=== PATIENT | male | born 1990 | race Caucasian/White ===

== ENCOUNTER 2017-07-23 07:36 | Emergency (ER) | payer OTHER ==
[2017-07-23] MEDS ORDERED: GLUCAGON 1 MG/ML VIAL IVP STA ×2 (07:59→08:21)
--- NOTE | 2017-07-23 08:03 | ED ---
ENT HPI - General Chief complaint: ENT Stated complaint: FB in throat Time Seen by Provider: 07/23/17 07:50 Source: patient, RN notes reviewed Mode of arrival: ambulatory Limitations: no limitations - History of Present Illness Initial comments: Is a 27-year-old male who states he has a history of poor dentition due to chewing tobacco since he was a young person who presents with complaints of having some food stuck in his throat since last night. Disease some steak and apparently got caught. He states he cannot pass his saliva he is not able to drink anything. He also was not able take any pain medication for his dental caries and gum pain. He denies any cough fevers chills sweats. He states he has had stuff get caught in his throat before but is able passive this is a first-time he couldn't pass it. He has never had an EGD. MD complaint: tooth pain, difficulty swallowing - Related Data Home Medications Medication Instructions Recorded Confirmed [id number] 1 - 2 tab PO Q4HR PRN 07/23/17 07/23/17 [Excedrin] Ibuprofen [Motrin] 200 - 400 mg PO Q6HR PRN 07/23/17 07/23/17 Previous Rx's Medication Instructions Recorded Pantoprazole Sodium [Protonix] 20 mg PO DAILY #14 tablet. 07/23/17 Allergies Allergy/AdvReac Type Severity Reaction Status Date / Time No Known Allergies Allergy Verified 07/23/17 07:54 Review of Systems ROS Statement: Those systems with pertinent positive or pertinent negative responses have been documented in the HPI. ROS Other: All systems not noted in ROS Statement are negative. Past Medical History Past Medical History: Pneumonia History of Any Multi-Drug Resistant Organisms: None Reported Past Surgical History: Cholecystectomy Past Psychological History: Depression Smoking Status: Light tobacco smoker Past Alcohol Use History: Occasional Past Drug Use History: None Reported General Exam - General Exam Comments Initial Comments: This is a well-developed well-nourished awake alert oriented times 3 male Limitations: no limitations General appearance: alert, anxious Head exam: Present: atraumatic, normocephalic, normal inspection Eye exam: Present: normal appearance, PERRL, EOMI. Absent: scleral icterus, conjunctival injection, periorbital swelling ENT exam: Present: other (Poor dentition with dental caries upper gum erythema no drainage or discharge seen. The presentation is consistent with gingivitis and dental caries) Neck exam: Present: normal inspection. Absent: tenderness, meningismus, lymphadenopathy Respiratory exam: Present: normal lung sounds bilaterally. Absent: respiratory distress, wheezes, rales, rhonchi, stridor Cardiovascular Exam: Present: regular rate, normal rhythm, normal heart sounds. Absent: systolic murmur, diastolic murmur, rubs, gallop, clicks GI/Abdominal exam: Present: soft, normal bowel sounds. Absent: distended, tenderness, guarding, rebound, rigid Back exam: Present: full ROM Neurological exam: Present: alert, oriented X3, CN II-XII intact Psychiatric exam: Present: normal affect, anxious Skin exam: Present: warm, dry, intact, normal color. Absent: rash Course Vital Signs 07/23/17 07/23/17 07/23/17 07:38 09:47 11:10 Temperature 98.0 F 99.4 F 99.1 F Pulse Rate 100 89 91 Respiratory 20 18 18 Rate Blood Pressure 139/105 158/86 151/90 O2 Sat by Pulse 99 99 98 Oximetry Medical Decision Making - Medical Decision Making The patient was evaluated by GI and did have a scope done. A meat bolus was removed. Patient will be discharged and follow-up with Dr. Garcia in the office. Disposition Clinical Impression: Esophageal obstruction Disposition: HOME SELF-CARE Condition: Good Instructions: Esophageal Foreign Body (ED) Prescriptions: Pantoprazole Sodium [Protonix] 20 mg PO DAILY #14 tablet. Referrals: None,Stated [Primary Care Provider] - 1-2 days
[2017-07-23] MEDS ORDERED: SODIUM CHLORIDE 0.9% 1,000 ML IV ONE (11:55)
[2017-07-23] MEDS ORDERED: LIDOCAINE 1% INJ 10MG/ML (20 ML MDV) ONE (11:56)
[2017-07-23] MEDS ORDERED: MIDAZOLAM 2 MG/2 ML VIAL ONE (11:56)
[2017-07-23] MEDS ORDERED: PROPOFOL 10 MG/ML 20 ML VIAL IV ONE (11:56)
--- NOTE | 2017-07-23 12:44 | P.PCN ---
Date of Procedure: 07/23/17 Procedure(s) Performed: Procedure: Esophagogastroduodenoscopy and removal of esophageal foreign body. Preoperative diagnosis: Obstructive dysphagia. Postoperative diagnosis: Impacted piece of meat in the distal esophagus, initially captured with the snare and broken into smaller pieces, then advanced into the stomach with gentle pressure with the endoscope. Preparation and sedation: Was provided by anesthesia. Brief clinical history: The patient is a 27-year-old male who presented to the emergency room with obstructive dysphagia that started the night before after he was eating beef. The patient reported similar episodes in the past that would resolve spontaneously. He was not able to swallow any solids or liquids including his saliva. Procedure: With the patient on his left lateral decubitus position and after informed consent and adequate sedation, I passed the Olympus-GIF 160 video upper endoscope through the cricopharyngeus down the esophagus. There was secretions and food debris in the esophagus which I suctioned and the impacted piece of meat was seen impacted in the distal esophagus. I was able to capture it with the snare and break it into smaller pieces, 1 larger piece I was able to retrieve with the snare by withdrawing the endoscope. I was then able to advance the pieces of meat remaining by gentle pressure with the endoscope. The esophagus appeared somewhat corrugated, but I did not obtain any biopsies at this time because of the finding all excessive secretions and food debris secondary to the impacted piece of meat and the friability that was noted after advancing the piece of meat into the stomach. The stomach and duodenum were inspected and there was no obvious abnormality noted. The patient tolerated the procedure well. Plan: I summarized the findings to the patient and his mother. He will be on clear liquids today then he can advance his diet tomorrow as tolerated. I like to see him in follow-up in the office in few weeks and I might consider repeat endoscopy for further evaluation of his esophagus, obtain biopsies to rule out eosinophilic esophagitis and possibly consider dilation based on his symptoms and the findings at that time.
[2017-07-23] MEDS ORDERED: KETOROLAC 30 MG/ML 1 ML VIAL IVP STA (13:07)
--- NOTE | 2017-07-23 13:22 | ED ---
Medical Decision Making - Medical Decision Making The patient will be discharged on antibiotics for the gingivitis/dental caries Disposition Clinical Impression: Esophageal obstruction, Gingivitis, Dental caries Disposition: HOME SELF-CARE Condition: Good Instructions: Esophageal Foreign Body (ED), Gingivitis (ED), Toothache (ED) Prescriptions: Cephalexin [Keflex] 500 mg PO Q6HR #40 cap Pantoprazole Sodium [Protonix] 20 mg PO DAILY #14 tablet.dr Referrals: None,Stated [Primary Care Provider] - 1-2 days
[2017-07-23 13:33] VITALS: BP 149/75; PULSE 80; RESP 20; TEMP 98
== END 2017-07-23 13:33 | disposition home or self-care (01) ==
LOC: EC 07:36
DX: K22.2 Esophageal obstruction (principal); K05.10 Chronic gingivitis, plaque induced; K02.9 Dental caries, unspecified; F17.200 Nicotine dependence, unspecified, uncomplicated
CPT/HCPCS: 43247; 99284; 96374; 96375; 96361; J1610; J1885

== ENCOUNTER 2018-10-30 00:22 | Emergency (ER) | payer OTHER ==
[2018-10-30 00:31] VITALS: RESP 16; TEMP 98.6
[2018-10-30] MEDS ORDERED: PENICILLIN VK 500MG STARTER 4 TAB BTL PO STA (00:52)
[2018-10-30] MEDS ORDERED: SODIUM CHLORIDE 0.9% 1,000 ML IV STA (00:52)
[2018-10-30] MEDS ORDERED: MECLIZINE 12.5 MG TAB PO STA (00:52)
--- NOTE | 2018-10-30 01:10 | ED ---
Dizziness HPI - General Source: patient Mode of arrival: ambulatory Limitations: no limitations <Denise Joshi - Last Filed: 10/30/18 03:12> <Abril Quintero - Last Filed: 10/30/18 21:51> - General Chief Complaint: Dizziness Stated Complaint: light-headed Time Seen by Provider: 10/30/18 00:40 - History of Present Illness Initial Comments: 28-year-old male patient presents to the emergency department today for evaluation of lightheadedness. Patient states that he noticed it when he woke this morning around 3:00. Patient states that having some mild swelling due to some bad teeth. Patient states this woke him around 4 AM and he began having lightheadedness at that time. Patient states that he has dizziness both with movement and at rest. He denies any headache, blurred vision, double vision. D enies any numbness or tingling to the extremities. Denies any extremity weakness. Patient denies history of similar symptoms. Denies any upper respiratory congestion or ear pain. Denies fever or chills. States he does have right lower dental pain with intermittent swelling to the face. Patient denies any recent rash, shortness breath, chest pain, abdominal pain, nausea, vomiting, diarrhea, constipation, back pain, hematuria, dysuria, urinary urgency, urinary frequency, or any other complaints. (Denise Joshi) - Related Data Home Medications Medication Instructions Recorded Confirmed [id number] 1 - 2 tab PO Q4HR PRN 07/23/17 07/23/17 [Excedrin] Ibuprofen [Motrin] 200 - 400 mg PO Q6HR PRN 07/23/17 07/23/17 Previous Rx's Medication Instructions Recorded Cephalexin [Keflex] 500 mg PO Q6HR #40 cap 07/23/17 Pantoprazole Sodium [Protonix] 20 mg PO DAILY #14 tablet. 07/23/17 Meclizine [Antivert] 25 mg PO BID #14 tab 10/30/18 Penicillin V Potassium [Pen Vee K] 500 mg PO Q6H #40 tablet 10/30/18 Allergies Allergy/AdvReac Type Severity Reaction Status Date / Time No Known Allergies Allergy Verified 10/30/18 00:31 Review of Systems ROS Other: All systems not noted in ROS Statement are negative. <Denise Joshi M - Last Filed: 10/30/18 03:12> ROS Other: All systems not noted in ROS Statement are negative. <Abril Quintero Parminder - Last Filed: 10/30/18 21:51> ROS Statement: Those systems with pertinent positive or pertinent negative responses have been documented in the HPI. Past Medical History Past Medical History: Pneumonia History of Any Multi-Drug Resistant Organisms: None Reported Past Surgical History: Cholecystectomy Past Psychological History: Depression Smoking Status: Light tobacco smoker Past Alcohol Use History: Occasional Past Drug Use History: None Reported <Denise Joshi M - Last Filed: 10/30/18 03:12> General Exam Limitations: no limitations General appearance: alert, in no apparent distress, other (Physical well- developed, well-nourished adult male patient in no acute distress. Vital signs upon presentation are temperature 98.6F, pulse 86, respirations 16, blood pressure 141/81, pulse ox 98% on room air.) Eye exam: Present: normal appearance, PERRL, EOMI, nystagmus (Bilateral horizontal gaze nystagmus). Absent: scleral icterus, conjunctival injection, periorbital swelling ENT exam: Present: normal exam, normal oropharynx, mucous membranes moist, TM's normal bilaterally Respiratory exam: Present: normal lung sounds bilaterally. Absent: respiratory distress, wheezes, rales, rhonchi, stridor Cardiovascular Exam: Present: regular rate, normal rhythm, normal heart sounds. Absent: systolic murmur, diastolic murmur, rubs, gallop, clicks GI/Abdominal exam: Present: soft, normal bowel sounds. Absent: distended, tenderness, guarding, rebound, rigid Neurological exam: Present: alert, oriented X3, CN II-XII intact, other (Strength in all 4 extremities is 5/5.) Psychiatric exam: Present: normal affect, normal mood Skin exam: Present: warm, dry, intact, normal color. Absent: rash <Denise Joshi M - Last Filed: 10/30/18 03:12> Course Vital Signs 10/30/18 10/30/18 00:28 02:30 Temperature 98.6 F Pulse Rate 86 88 Respiratory 16 16 Rate Blood Pressure 141/81 138/98 O2 Sat by Pulse 98 Oximetry EKG Findings - EKG Comments: EKG Findings:: EKG obtained at 08 18 shows normal sinus rhythm with a ventricular rate of 78, MA interval 166, QR alevism 102, QT 372, QTc 424. No evidence of ST elevation or depression. <Denise Joshi - Last Filed: 10/30/18 03:12> Medical Decision Making - Lab Data Result diagrams: 10/30/18 00:01 10/30/18 00:01 <Denise Joshi - Last Filed: 10/30/18 03:12> - Lab Data Result diagrams: 10/30/18 00:01 10/30/18 00:01 <Abril Quintero - Last Filed: 10/30/18 21:51> - Medical Decision Making 28-year-old male patient presents to the emergency room today for evaluation of lightheadedness. Physical examination is unremarkable. He is neurologically intact with no focal deficits. Physical exam is bilateral horizontal gaze nystagmus. EKG was unremarkable and showed normal sinus rhythm. Patient was given IV fluids and Antivert here in the emergency department. Upon reevaluation patient states symptoms have completely resolved. Patient was also reporting right lower dental pain. He did reveal gingival erythema and hyperplasia on exam her there is no evidence of drainable abscess. He will be started on Pen-Vee K and instructed to follow-up with dentistry as soon as possible. He is instructed to follow-up with his primary care physician for recheck in 1-2 days. Return parameters discussed in detail. He verbalizes understanding and agrees with this plan. (Denise Joshi) I was available for consultation in the emergency department. The history and physical exam were done by the midlevel provider. I was consulted for this patient's care. I reviewed the case with the midlevel provider and based on their presentation of the patient, I agree with the assessment, medical decision making and plan of care as documented. (Abril Quintero) - Lab Data Lab Results 10/30/18 10/30/18 10/30/18 Range/Units 00:01 00:01 00:52 WBC 9.3 (3.8-10.6) k/uL RBC 4.93 (4.30-5.90) m/uL Hgb 14.5 (13.0-17.5) gm/dL Hct 43.5 (39.0-53.0) % MCV 88.4 (80.0-100.0) fL MCH 29.5 (25.0-35.0) pg MCHC 33.4 (31.0-37.0) g/dL RDW 13.0 (11.5-15.5) % Plt Count 353 (150-450) k/uL Neutrophils % 53 % Lymphocytes % 33 % Monocytes % 5 % Eosinophils % 6 % Basophils % 1 % Neutrophils # 5.0 (1.3-7.7) k/uL Lymphocytes # 3.0 (1.0-4.8) k/uL Monocytes # 0.5 (0-1.0) k/uL Eosinophils # 0.5 (0-0.7) k/uL Basophils # 0.1 (0-0.2) k/uL Sodium 143 (137-145) mmol/L Potassium 4.1 (3.5-5.1) mmol/L Chloride 105 (98-107) mmol/L Carbon Dioxide 29 (22-30) mmol/L Anion Gap 9 mmol/L BUN 7 L (9-20) mg/dL Creatinine 0.83 (0.66-1.25) mg/dL Est GFR (CKD-EPI)AfAm >90 (>60 ml/min/1.73 sqM) Est GFR (CKD-EPI)NonAf >90 (>60 ml/min/1.73 sqM) Glucose 89 (74-99) mg/dL Calcium 10.0 (8.4-10.2) mg/dL Total Bilirubin 0.4 (0.2-1.3) mg/dL AST 24 (17-59) U/L ALT 43 (21-72) U/L Alkaline Phosphatase 79 (38-126) U/L Total Protein 7.2 (6.3-8.2) g/dL Albumin 4.4 (3.5-5.0) g/dL Urine Color Colorless Urine Appearance Clear (Clear) Urine pH 6.5 (5.0-8.0) Ur Specific Hart 1.001 (1.001-1.035) Urine Protein Negative (Negative) Urine Glucose (UA) Negative (Negative) Urine Ketones Negative (Negative) Urine Blood Trace H (Negative) Urine Nitrite Negative (Negative) Urine Bilirubin Negative (Negative) Urine Urobilinogen <2.0 (<2.0) mg/dL Ur Leukocyte Esterase Negative (Negative) Urine RBC <1 (0-5) /hpf Urine WBC <1 (0-5) /hpf Disposition Is patient prescribed a controlled substance at d/c from ED?: No Time of Disposition: 02:20 <Denise Joshi - Last Filed: 10/30/18 03:12> <Abril Quintero - Last Filed: 10/30/18 21:51> Clinical Impression: Vertigo, Dental infection Disposition: HOME SELF-CARE Condition: Good Instructions (If sedation given, give patient instructions): Dental Abscess (ED), Vertigo (ED), Dizziness (ED) Additional Instructions: Take medications as directed. Take Tylenol Motrin for pain control. Increase fluids. Follow-up through primary care physician for recheck in 1-2 days. Follow-up with dentistry as soon as possible. Return to the emergency department immediately for any new, worsening, or concerning symptoms. Prescriptions: Meclizine [Antivert] 25 mg PO BID #14 tab Penicillin V Potassium [Pen Vee K] 500 mg PO Q6H #40 tablet Referrals: None,Stated [Primary Care Provider] - 1-2 days
[2018-10-30 01:17] LABS: Basophils # (A) 0.1 k/uL (0-0.2); Basophils % (A) 1 %; Eosinophils # (A) 0.5 k/uL (0-0.7); Eosinophils % (A) 6 %; HCT 43.5 % (39.0-53.0); HGB 14.5 gm/dL (13.0-17.5); Lymphocytes % (A) 33 %; MCH 29.5 pg (25.0-35.0); MCHC 33.4 g/dL (31.0-37.0); MCV 88.4 fL (80.0-100.0); Mean Platelet Volume 7.4; Monocytes # (A) 0.5 k/uL (0-1.0); Monocytes % (A) 5 %; Neutrophils % (A) 53 %; Platelet Count 353 k/uL (150-450); RBC 4.93 m/uL (4.30-5.90); WBC 9.3 k/uL (3.8-10.6)
[2018-10-30 01:20] LABS: Appearance,Urine Clear (Clear); Bilirubin,Urine Negative (Negative); Blood,Urine Trace (Negative); Color,Urine Colorless; Glucose,Urine (UA) Negative (Negative); Ketones,Urine Negative (Negative); Leukocyte Esterase,Urine Negative (Negative); Nitrite,Urine Negative (Negative); PH, Urine 6.5 (5.0-8.0); Protein,Urine Negative (Negative); RBC,Urine <1 /hpf (0-5); Specific Gravity,Urine 1.001 (1.001-1.035); Urobilinogen,Urine <2.0 mg/dL (<2.0); WBC,Urine <1 /hpf (0-5)
[2018-10-30 01:31] LABS: ALT 43 U/L (21-72); AST 24 U/L (17-59); Albumin 4.4 g/dL (3.5-5.0); Alkaline Phosphatase 79 U/L (38-126); Anion Gap 9 mmol/L; Blood Urea Nitrogen 7 mg/dL (9-20); Carbon Dioxide 29 mmol/L (22-30); Chloride 105 mmol/L (98-107); Glucose 89 mg/dL (74-99); Potassium 4.1 mmol/L (3.5-5.1); Sodium 143 mmol/L (137-145); Total Bilirubin 0.4 mg/dL (0.2-1.3); Total Protein 7.2 g/dL (6.3-8.2)
[2018-10-30 02:32] VITALS: BP 138/98; PULSE 88
== END 2018-10-30 02:30 | disposition home or self-care (01) ==
LOC: EC 00:22
DX: K04.7 Periapical abscess without sinus (principal); R42 Dizziness and giddiness; H55.00 Unspecified nystagmus; F17.200 Nicotine dependence, unspecified, uncomplicated
CPT/HCPCS: 36415; 80053; 81001; 85025; 93005; 96360; 99284

== ENCOUNTER 2019-03-17 10:16 | Emergency (ER) | payer OTHER ==
[2019-03-17 10:23] VITALS: RESP 18
[2019-03-17] MEDS ORDERED: SODIUM CHLORIDE 0.9% 1,000 ML IV STA (10:26)
[2019-03-17] MEDS ORDERED: MAG HYDROX/AL HYDROX/SIMETH 30 ML, HYOSCYAMINE ELIXIR 10 ML, CIMETIDINE HCL 300 MG, LID... PO STA ×4 (10:38)
[2019-03-17] MEDS ORDERED: FAMOTIDINE 20 MG/2 ML VIAL IV STA (10:38)
--- NOTE | 2019-03-17 10:40 | ED ---
Abdominal Pain HPI - General Chief Complaint: Abdominal Pain Stated Complaint: Stomach pain Time Seen by Provider: 03/17/19 10:20 Source: patient Mode of arrival: ambulatory Limitations: no limitations - History of Present Illness Initial Comments: 28-year-old male presented for epigastric abdominal pain. Patient states that he has pain when he pushes on the epigastric region of his back. States it as a sharp pain. Patient states he is concerned he has an ulcer. Patient denies NSAID use denies alcohol abuse. Patient denies any history of pancreatitis. Patient states that he does have a lot of stressors in his life currently. Patient denies vomiting. Denies diarrhea denies fevers. She denies right upper quadrant pain patient states he has had a previous cholecystectomy. Patient denies lower abdominal pain. Patient denies radiation of the pain. Patient denies any melena hematochezia or hematemesis. Patient remaining review of systems negative including shortness of breath or pleuritic chest pain. Patient appears well upon arrival no signs of acute distress. - Related Data Home Medications Medication Instructions Recorded Confirmed Ibuprofen [Motrin] 800 mg PO Q6HR PRN 07/23/17 03/17/19 Previous Rx's Medication Instructions Recorded Famotidine [Pepcid] 20 mg PO DAILY 14 Days #14 tablet 03/17/19 Allergies Allergy/AdvReac Type Severity Reaction Status Date / Time No Known Allergies Allergy Verified 03/17/19 10:33 Review of Systems ROS Statement: Those systems with pertinent positive or pertinent negative responses have been documented in the HPI. ROS Other: All systems not noted in ROS Statement are negative. Past Medical History Past Medical History: Pneumonia History of Any Multi-Drug Resistant Organisms: None Reported Past Surgical History: Cholecystectomy Past Psychological History: Depression Smoking Status: Never smoker Past Alcohol Use History: None Reported Past Drug Use History: None Reported General Exam - General Exam Comments Initial Comments: General: The patient is awake and alert, in no distress, and does not appear acutely ill. Eye: +3 mm pupils are equal, round and reactive to light, extra-ocular movements are intact. No nystagmus. There is normal conjunctiva bilaterally. No signs of icterus. Ears, nose, mouth and throat: There are moist mucous membranes and no oral lesions. Neck: The neck is supple, there is no tenderness or JVD. Cardiovascular: There is a regular rate and rhythm. No murmur, rub or gallop is appreciated. Respiratory: Lungs are clear to auscultation, respirations are non-labored, breath sounds are equal. No wheezes, stridor, rales, or rhonchi. Gastrointestinal: Soft, non-distended, patient has tenderness palpation of the epigastric region of the abdomen without masses or organomegaly noted. There is no rebound or guarding present. Bowel sounds are unremarkable. Musculoskeletal: Normal ROM, no tenderness. Strength 5/5. Sensation intact. Radial pulses equal bilaterally 2+. Neurological: A&O x 3. CN II-XII intact, There are no obvious motor or sensory deficits. Coordination appears grossly intact. Speech is normal. Skin: Skin is warm and dry and no rashes or lesions are noted. Psychiatric: Cooperative, appropriate mood & affect, normal judgment. Limitations: no limitations Course Vital Signs 03/17/19 03/17/19 03/17/19 10:20 11:08 12:01 Temperature 97.9 F 98.2 F 98.2 F Pulse Rate 79 72 72 Respiratory 18 18 18 Rate Blood Pressure 145/85 127/90 127/90 O2 Sat by Pulse 98 98 98 Oximetry Medical Decision Making - Medical Decision Making 28-year-old male presents epigastric pain. Patient was concerned peptic ulcer. Denies melena hematochezia. Does not radiate to the back. Lipase within norm al limits. Patient abdomen is soft and does not appear rigid signs of acute abdomen. Acute abdominal series revealed no evidence of pneumoperitoneum. Patient's hemoglobin stable as well as vital signs. Patient was given a GI cocktail and Pepcid stating this helped alleviate symptoms. There is possibly patient has a peptic ulcer. I discussed avoidance of coffee spicy foods and NSAIDs, steroids and alcohol. Patient verbalizes understanding. I recommended patient follow up primary care provider and obtain gastroenterology follow-up. Patient states he has had a previous upper endoscopy. I discussed the case maintained provider if the patient is stable for discharge patient is agreeable with discharge. Return parameters were discussed at length. - Lab Data Result diagrams: 03/17/19 10:36 03/17/19 10:36 Lab Results 03/17/19 03/17/19 03/17/19 Range/Units 10:36 10:36 11:09 WBC 7.7 (3.8-10.6) k/uL RBC 5.14 (4.30-5.90) m/uL Hgb 15.6 (13.0-17.5) gm/dL Hct 46.4 (39.0-53.0) % MCV 90.3 (80.0-100.0) fL MCH 30.4 (25.0-35.0) pg MCHC 33.7 (31.0-37.0) g/dL RDW 12.8 (11.5-15.5) % Plt Count 259 (150-450) k/uL Neutrophils % 49 % Lymphocytes % 36 % Monocytes % 4 % Eosinophils % 6 % Basophils % 2 % Neutrophils # 3.8 (1.3-7.7) k/uL Lymphocytes # 2.8 (1.0-4.8) k/uL Monocytes # 0.3 (0-1.0) k/uL Eosinophils # 0.5 (0-0.7) k/uL Basophils # 0.1 (0-0.2) k/uL Sodium 141 (137-145) mmol/L Potassium 4.4 (3.5-5.1) mmol/L Chloride 107 (98-107) mmol/L Carbon Dioxide 27 (22-30) mmol/L Anion Gap 7 mmol/L BUN 10 (9-20) mg/dL Creatinine 0.87 (0.66-1.25) mg/dL Est GFR (CKD-EPI)AfAm >90 (>60 ml/min/1.73 sqM) Est GFR (CKD-EPI)NonAf >90 (>60 ml/min/1.73 sqM) Glucose 102 H (74-99) mg/dL Calcium 9.5 (8.4-10.2) mg/dL Total Bilirubin 0.5 (0.2-1.3) mg/dL AST 35 (17-59) U/L ALT 58 (21-72) U/L Alkaline Phosphatase 78 (38-126) U/L Total Protein 7.5 (6.3-8.2) g/dL Albumin 4.4 (3.5-5.0) g/dL Amylase 40 (30-110) U/L Lipase 153 (23-300) U/L Urine Color Yellow Urine Appearance Clear (Clear) Urine pH 6.5 (5.0-8.0) Ur Specific Scott 1.018 (1.001-1.035) Urine Protein Negative (Negative) Urine Glucose (UA) Negative (Negative) Urine Ketones Negative (Negative) Urine Blood Small H (Negative) Urine Nitrite Negative (Negative) Urine Bilirubin Negative (Negative) Urine Urobilinogen <2.0 (<2.0) mg/dL Ur Leukocyte Esterase Negative (Negative) Urine RBC 6 H (0-5) /hpf Urine WBC 1 (0-5) /hpf Ur Squamous Epith Cells 1 (0-4) /hpf Urine Bacteria Rare H (None) /hpf Urine Mucus Rare H (None) /hpf Disposition Clinical Impression: Epigastric pain Disposition: HOME SELF-CARE Condition: Good Instructions (If sedation given, give patient instructions): Peptic Ulcer (ED), Epigastric Pain (ED) Additional Instructions: Please use medication as discussed. Please follow-up with family doctor in the next 2 days.. Please return to emergency room if the symptoms increase or worsen or for any other concerns. Prescriptions: Famotidine [Pepcid] 20 mg PO DAILY 14 Days #14 tablet Is patient prescribed a controlled substance at d/c from ED?: No Referrals: None,Stated [Primary Care Provider] - 1-2 days [facility] [NON[facility]] - 1-2 days Time of Disposition: 11:49
[2019-03-17 10:48] LABS: Basophils # (A) 0.1 k/uL (0-0.2); Basophils % (A) 2 %; Eosinophils # (A) 0.5 k/uL (0-0.7); Eosinophils % (A) 6 %; HCT 46.4 % (39.0-53.0); HGB 15.6 gm/dL (13.0-17.5); Lymphocytes # (A) 2.8 k/uL (1.0-4.8); Lymphocytes % (A) 36 %; MCH 30.4 pg (25.0-35.0); MCHC 33.7 g/dL (31.0-37.0); MCV 90.3 fL (80.0-100.0); Mean Platelet Volume 7.3; Monocytes # (A) 0.3 k/uL (0-1.0); Monocytes % (A) 4 %; Neutrophils # (A) 3.8 k/uL (1.3-7.7); Neutrophils % (A) 49 %; Platelet Count 259 k/uL (150-450); RBC 5.14 m/uL (4.30-5.90); RDW 12.8 % (11.5-15.5); WBC 7.7 k/uL (3.8-10.6)
[2019-03-17 10:58] LABS: ALT 58 U/L (21-72); AST 35 U/L (17-59); African American GFR (CKD) >90 (>60 ml/min/1.73 sqM); Albumin 4.4 g/dL (3.5-5.0); Alkaline Phosphatase 78 U/L (38-126); Amylase 40 U/L (30-110); Anion Gap 7 mmol/L; Blood Urea Nitrogen 10 mg/dL (9-20); Calcium 9.5 mg/dL (8.4-10.2); Carbon Dioxide 27 mmol/L (22-30); Chloride 107 mmol/L (98-107); Glucose 102 mg/dL (74-99); Non-African American GFR(CKD) >90 (>60 ml/min/1.73 sqM); Potassium 4.4 mmol/L (3.5-5.1); Sodium 141 mmol/L (137-145); Total Bilirubin 0.5 mg/dL (0.2-1.3); Total Protein 7.5 g/dL (6.3-8.2)
[2019-03-17 11:09] VITALS: BP 127/90; PULSE 72; TEMP 98.2
[2019-03-17 11:24] LABS: Appearance,Urine Clear (Clear); Bacteria,Urine Rare /hpf; Bilirubin,Urine Negative (Negative); Blood,Urine Small (Negative); Color,Urine Yellow; Glucose,Urine (UA) Negative (Negative); Ketones,Urine Negative (Negative); Leukocyte Esterase,Urine Negative (Negative); Mucus,Urine Rare /hpf; Nitrite,Urine Negative (Negative); PH, Urine 6.5 (5.0-8.0); Protein,Urine Negative (Negative); RBC,Urine 6 /hpf (0-5); Specific Gravity,Urine 1.018 (1.001-1.035); Squamous Epithelial Cell,Urine 1 /hpf (0-4); Urobilinogen,Urine <2.0 mg/dL (<2.0); WBC,Urine 1 /hpf (0-5)
--- NOTE | 2019-03-17 11:46 | XR ---
EXAMINATION TYPE: XR abdomen acute w cxr DATE OF EXAM: 03/17/2019 CLINICAL HISTORY: Chest and epigastric pain for 2 days. TECHNIQUE: Single frontal view of chest is obtained. Supine and upright views of the abdomen are acq uired. COMPARISON: None. FINDINGS: The lungs are grossly clear without pleural effusion or pneumothorax. Cardiac silhouette size appears within normal limits. Osseous structures are intact. Gas is noted in nondistended stomach and small bowel loops. Gas and fecal material is seen in nondis tended colon. Cholecystectomy clips are present. Left-sided pelvic phlebolith. Possible splenomegaly and spleen tip projects below left 12th rib, correlate clinically. No pneumoperitoneum. Slight scolio tic curvature and spine. IMPRESSION: 1. No acute pulmonary process. 2. Overall nonobstructive bowel gas pattern. Possible splenomegaly, correlate clinically.
== END 2019-03-17 12:02 | disposition home or self-care (01) ==
LOC: EC 10:16
DX: R10.13 Epigastric pain (principal); Z90.49 Acquired absence of other specified parts of digestive tract
CPT/HCPCS: 36415; 74022; 80053; 81001; 82150; 83690; 85025; 96361; 96374; 99284

== ENCOUNTER 2019-06-09 19:42 | Emergency (ER) | payer OTHER ==
[2019-06-09 19:49] VITALS: TEMP 97.9
--- NOTE | 2019-06-09 20:33 | ED ---
Headache HPI - General Chief Complaint: Headache Stated Complaint: Vertigo Time Seen by Provider: 06/09/19 19:52 Source: RN notes reviewed, old records reviewed Mode of arrival: wheelchair Limitations: no limitations - History of Present Illness Initial Comments: This is a 29-year-old male who presents today for evaluation regarding vertiginous symptoms and room spinning severely especially looking to the left he has a headache with history of migraines states when he gets migraines as verge vertigo can get worse. Patient has had multiple imaging studies in the past including MRI states he wants no further head imaging. Patient states he thinks that symptomatic treatment last time he had this emergency department and his symptoms resolved. Patient denies any nausea and vomiting. No traumas. Fevers MD Complaint: headache, other (Vertigo) -: days(s) Onset Description: gradual Location: left Severity: moderate Severity scale (1-10): 7 Consistency: intermittent Improves With: nothing Worsens With: movement of head/neck Associated Symptoms: nausea Treatments Prior to Arrival: none - Related Data Home Medications Medication Instructions Recorded Confirmed Ibuprofen [Motrin] 800 mg PO Q6HR PRN 07/23/17 03/17/19 Previous Rx's Medication Instructions Recorded Famotidine [Pepcid] 20 mg PO DAILY 14 Days #14 tablet 03/17/19 Meclizine [Antivert] 25 mg PO TID PRN #30 tab 06/09/19 Allergies Allergy/AdvReac Type Severity Reaction Status Date / Time No Known Allergies Allergy Verified 06/09/19 19:49 Review of Systems ROS Statement: Those systems with pertinent positive or pertinent negative responses have been documented in the HPI. ROS Other: All systems not noted in ROS Statement are negative. Past Medical History Past Medical History: Pneumonia History of Any Multi-Drug Resistant Organisms: None Reported Past Surgical History: Cholecystectomy Past Psychological History: Depression Smoking Status: Never smoker Past Alcohol Use History: None Reported Past Drug Use History: None Reported General Exam Limitations: no limitations General appearance: alert, in no apparent distress Head exam: Present: atraumatic, normocephalic, normal inspection Eye exam: Present: normal appearance, PERRL, EOMI, nystagmus (Beating nystagmus to the left). Absent: scleral icterus, conjunctival injection, periorbital swelling ENT exam: Present: normal exam, mucous membranes moist Neck exam: Present: normal inspection. Absent: tenderness, meningismus, lymphadenopathy Respiratory exam: Present: normal lung sounds bilaterally. Absent: respiratory distress, wheezes, rales, rhonchi, stridor Cardiovascular Exam: Present: regular rate, normal rhythm, normal heart sounds. Absent: systolic murmur, diastolic murmur, rubs, gallop, clicks GI/Abdominal exam: Present: soft, normal bowel sounds. Absent: distended, tenderness, guarding, rebound, rigid Extremities exam: Present: normal inspection, full ROM, normal capillary refill. Absent: tenderness, pedal edema, joint swelling, calf tenderness Back exam: Present: normal inspection Neurological exam: Present: alert, oriented X3, CN II-XII intact Psychiatric exam: Present: normal affect, normal mood Skin exam: Present: warm, dry, intact, normal color. Absent: rash Course Vital Signs 06/09/19 19:46 Temperature 97.9 F Pulse Rate 84 Respiratory 16 Rate Blood Pressure 137/82 O2 Sat by Pulse 99 Oximetry - Reevaluation(s) Reevaluation #1: 06/09/19 20:53 Records reviewed Reevaluation #2: 06/09/19 20:53 Symptoms have improved Medical Decision Making - Medical Decision Making 29-year-old male the ER for evaluation patient resents today for evaluation in regards to 4 changes symptoms of headache, headache is migraine in nature. Patient also has symptoms of vertigo. Patient refusing imaging of like discharge home, symptoms improved Disposition Clinical Impression: Migraine headache, Vertigo Disposition: HOME SELF-CARE Condition: Good Instructions (If sedation given, give patient instructions): Vertigo (ED) Prescriptions: Meclizine [Antivert] 25 mg PO TID PRN #30 tab PRN Reason: Vertigo Is patient prescribed a controlled substance at d/c from ED?: No Referrals: None,Stated [Primary Care Provider] - 1-2 days
[2019-06-09] MEDS ORDERED: PROCHLORPERAZINE 10 MG TAB PO STA (20:50)
[2019-06-09] MEDS ORDERED: DEXAMETHASONE 4 MG TAB PO STA (20:50)
[2019-06-09] MEDS ORDERED: IBUPROFEN 800 MG TAB PO STA (20:50)
[2019-06-09] MEDS ORDERED: diphenhydrAMINE 50 MG CAP PO STA (20:50)
[2019-06-09] MEDS ORDERED: ONDANSETRON 4 MG ODT STARTER PACK 2 TAB BTL PO STA (20:51)
[2019-06-09 21:13] VITALS: BP 134/80; PULSE 79; RESP 18
== END 2019-06-09 21:41 | disposition home or self-care (01) ==
LOC: EC 19:42
DX: G43.909 Migraine, unspecified, not intractable, without status migrainosus (principal); Z53.29 Procedure and treatment not carried out because of patient's decision for other reasons
CPT/HCPCS: 99283; S0183; J8540; S0119

== ENCOUNTER 2020-08-23 02:53 | Emergency (ER) | payer OTHER ==
[2020-08-23 03:00] VITALS: RESP 18; TEMP 98.6
--- NOTE | 2020-08-23 03:54 | ED ---
General Adult HPI - General Chief complaint: Extremity Problem,Nontraumatic Stated complaint: lt arm numbness Time Seen by Provider: 08/23/20 03:03 Source: patient Mode of arrival: ambulatory Limitations: no limitations - History of Present Illness Initial comments: Patient is 30-year-old man who presents with complaint of left-sided chest pain and also symptoms in his left arm. The patient states that it started tonight, while at rest. He indicates the pain is dull, and then left arm is tingling or numb. He was concerned because his father had history of heart attack. Patient did not have dyspnea, diaphoresis, nausea or vomiting, palpitations. -: hour(s) Location: chest Radiation: extremity Quality: aching Consistency: constant Improves with: none Worsens with: none Associated Symptoms: chest pain Treatments Prior to Arrival: none - Related Data Home Medications Medication Instructions Recorded Confirmed Ibuprofen [Motrin] 800 mg PO Q6HR PRN 07/23/17 03/17/19 Previous Rx's Medication Instructions Recorded Famotidine [Pepcid] 20 mg PO DAILY 14 Days #14 tablet 03/17/19 Meclizine [Antivert] 25 mg PO TID PRN #30 tab 06/09/19 Azithromycin [Zithromax Z-pack (6 250 mg PO DIRECTED #6 tab 08/23/20 tabs)] Allergies Allergy/AdvReac Type Severity Reaction Status Date / Time No Known Allergies Allergy Verified 08/23/20 03:01 Review of Systems ROS Statement: Those systems with pertinent positive or pertinent negative responses have been documented in the HPI. ROS Other: All systems not noted in ROS Statement are negative. Constitutional: Denies: fever, chills Respiratory: Denies: cough, dyspnea Cardiovascular: Reports: chest pain. Denies: palpitations, orthopnea, edema, syncope Gastrointestinal: Denies: abdominal pain, nausea, vomiting Genitourinary: Denies: dysuria, hematuria Musculoskeletal: Denies: back pain Skin: Denies: rash Neurological: Reports: paresthesias. Denies: headache, weakness, numbness Hematological/Lymphatic: Denies: easy bleeding Past Medical History Past Medical History: Pneumonia History of Any Multi-Drug Resistant Organisms: None Reported Past Surgical History: Cholecystectomy Past Psychological History: Depression Smoking Status: Former smoker Past Alcohol Use History: None Reported Past Drug Use History: None Reported General Exam Limitations: no limitations General appearance: alert, in no apparent distress Head exam: Present: atraumatic, normocephalic Eye exam: Present: normal appearance. Absent: scleral icterus, conjunctival injection ENT exam: Present: normal oropharynx Neck exam: Present: normal inspection Respiratory exam: Present: normal lung sounds bilaterally. Absent: respiratory distress, wheezes, rales, rhonchi, stridor Cardiovascular Exam: Present: regular rate, normal rhythm, normal heart sounds. Absent: systolic murmur, diastolic murmur, rubs, gallop GI/Abdominal exam: Present: soft. Absent: distended, tenderness, guarding, rebound, rigid, mass Extremities exam: Present: normal inspection, normal capillary refill. Absent: pedal edema, calf tenderness Back exam: Present: normal inspection. Absent: CVA tenderness (R), CVA tenderness (L) Neurological exam: Present: alert Skin exam: Present: warm, dry, intact, normal color. Absent: rash Course Vital Signs 08/23/20 08/23/20 08/23/20 02:58 04:00 04:42 Temperature 98.6 F 98.6 F Pulse Rate 84 73 73 Respiratory 18 18 18 Rate Blood Pressure 134/86 135/91 O2 Sat by Pulse 99 98 Oximetry EKG Findings - EKG Results: EKG: interpreted by EVIE TREVINO, sinus rhythm (Rate 70 bpm), normal axis, normal QRS, normal ST/T, no acute changes - AR, Pacemaker, Normal: Normal tracing: normal tracing Medical Decision Making - Lab Data Result diagrams: 08/23/20 03:46 08/23/20 03:46 Lab Results 08/23/20 08/23/20 08/23/20 Range/Units 03:46 03:46 03:46 WBC 10.6 (3.8-10.6) k/uL RBC 5.02 (4.30-5.90) m/uL Hgb 15.1 (13.0-17.5) gm/dL Hct 44.8 (39.0-53.0) % MCV 89.2 (80.0-100.0) fL MCH 30.2 (25.0-35.0) pg MCHC 33.8 (31.0-37.0) g/dL RDW 12.5 (11.5-15.5) % Plt Count 224 (150-450) k/uL MPV 7.9 Neutrophils % 57 % Lymphocytes % 27 % Monocytes % 7 % Eosinophils % 5 % Basophils % 2 % Neutrophils # 6.0 (1.3-7.7) k/uL Lymphocytes # 2.8 (1.0-4.8) k/uL Monocytes # 0.8 (0-1.0) k/uL Eosinophils # 0.6 (0-0.7) k/uL Basophils # 0.2 (0-0.2) k/uL PT 10.4 (9.0-12.0) sec INR 1.0 (<1.2) APTT 22.0 (22.0-30.0) sec Sodium 142 (137-145) mmol/L Potassium 4.0 (3.5-5.1) mmol/L Chloride 105 (98-107) mmol/L Carbon Dioxide 30 (22-30) mmol/L Anion Gap 7 mmol/L BUN 10 (9-20) mg/dL Creatinine 0.92 (0.66-1.25) mg/dL Est GFR (CKD-EPI)AfAm >90 (>60 ml/min/1.73 sqM) Est GFR (CKD-EPI)NonAf >90 (>60 ml/min/1.73 sqM) Glucose 99 (74-99) mg/dL Calcium 9.7 (8.4-10.2) mg/dL Magnesium 1.9 (1.6-2.3) mg/dL Total Bilirubin 0.4 (0.2-1.3) mg/dL AST 26 (17-59) U/L ALT 57 H (4-49) U/L Alkaline Phosphatase 91 (38-126) U/L Troponin I (0.000-0.034) ng/mL Total Protein 7.0 (6.3-8.2) g/dL Albumin 4.0 (3.5-5.0) g/dL 08/23/20 Range/Units 03:46 WBC (3.8-10.6) k/uL RBC (4.30-5.90) m/uL Hgb (13.0-17.5) gm/dL Hct (39.0-53.0) % MCV (80.0-100.0) fL MCH (25.0-35.0) pg MCHC (31.0-37.0) g/dL RDW (11.5-15.5) % Plt Count (150-450) k/uL MPV Neutrophils % % Lymphocytes % % Monocytes % % Eosinophils % % Basophils % % Neutrophils # (1.3-7.7) k/uL Lymphocytes # (1.0-4.8) k/uL Monocytes # (0-1.0) k/uL Eosinophils # (0-0.7) k/uL Basophils # (0-0.2) k/uL PT (9.0-12.0) sec INR (<1.2) APTT (22.0-30.0) sec Sodium (137-145) mmol/L Potassium (3.5-5.1) mmol/L Chloride (98-107) mmol/L Carbon Dioxide (22-30) mmol/L Anion Gap mmol/L BUN (9-20) mg/dL Creatinine (0.66-1.25) mg/dL Est GFR (CKD-EPI)AfAm (>60 ml/min/1.73 sqM) Est GFR (CKD-EPI)NonAf (>60 ml/min/1.73 sqM) Glucose (74-99) mg/dL Calcium (8.4-10.2) mg/dL Magnesium (1.6-2.3) mg/dL Total Bilirubin (0.2-1.3) mg/dL AST (17-59) U/L ALT (4-49) U/L Alkaline Phosphatase (38-126) U/L Troponin I <0.012 (0.000-0.034) ng/mL Total Protein (6.3-8.2) g/dL Albumin (3.5-5.0) g/dL Disposition Clinical Impression: Chest pain Narrative: Possible pneumonia Disposition: HOME SELF-CARE Condition: Good Instructions (If sedation given, give patient instructions): Chest Pain (ED) Prescriptions: Azithromycin [Zithromax Z-pack (6 tabs)] 250 mg PO DIRECTED #6 tab Is patient prescribed a controlled substance at d/c from ED?: No Referrals: None,Stated [Primary Care Provider] - 1-2 days
--- NOTE | 2020-08-23 04:00 | XR ---
EXAM: XR Chest, 2 Views CLINICAL HISTORY: ITS.REASON XR Reason: Chest Pain TECHNIQUE: Frontal and lateral views of the chest. COMPARISON: No relevant prior studies available. FINDINGS: Lungs: Unremarkable. Pleural space: Unremarkable. Heart: Unremarkable. Mediastinum: Unremarkable. Bones/joints: Unremarkable. Lymph nodes: Ovoid opacity at the right hilum which may be infectious. Prominent lymph node or mass is not excluded. IMPRESSION: Ovoid opacity at the right hilum which may be infectious. Prominent lymph node or mass is not excluded.
[2020-08-23 04:04] LABS: Basophils # (A) 0.2 k/uL (0-0.2); Basophils % (A) 2 %; Eosinophils # (A) 0.6 k/uL (0-0.7); Eosinophils % (A) 5 %; HCT 44.8 % (39.0-53.0); HGB 15.1 gm/dL (13.0-17.5); Lymphocytes # (A) 2.8 k/uL (1.0-4.8); Lymphocytes % (A) 27 %; MCH 30.2 pg (25.0-35.0); MCHC 33.8 g/dL (31.0-37.0); MCV 89.2 fL (80.0-100.0); Mean Platelet Volume 7.9; Monocytes # (A) 0.8 k/uL (0-1.0); Monocytes % (A) 7 %; Neutrophils % (A) 57 %; Platelet Count 224 k/uL (150-450); RBC 5.02 m/uL (4.30-5.90); RDW 12.5 % (11.5-15.5); WBC 10.6 k/uL (3.8-10.6)
[2020-08-23 04:14] LABS: Prothrombin Time 10.4 sec (9.0-12.0)
[2020-08-23 04:15] LABS: ALT 57 U/L (4-49); AST 26 U/L (17-59); African American GFR (CKD) >90 (>60 ml/min/1.73 sqM); Alkaline Phosphatase 91 U/L (38-126); Anion Gap 7 mmol/L; Blood Urea Nitrogen 10 mg/dL (9-20); Calcium 9.7 mg/dL (8.4-10.2); Carbon Dioxide 30 mmol/L (22-30); Chloride 105 mmol/L (98-107); Glucose 99 mg/dL (74-99); Magnesium 1.9 mg/dL (1.6-2.3); Non-African American GFR(CKD) >90 (>60 ml/min/1.73 sqM); Sodium 142 mmol/L (137-145); Total Bilirubin 0.4 mg/dL (0.2-1.3)
[2020-08-23 04:28] VITALS: PULSE 73
[2020-08-23 04:43] VITALS: BP 135/91
== END 2020-08-23 04:43 | disposition home or self-care (01) ==
LOC: EC 02:53
DX: R07.89 Other chest pain (principal); R20.0 Anesthesia of skin; Z87.891 Personal history of nicotine dependence
CPT/HCPCS: 36415; 71046; 80053; 83735; 84484; 85025; 85610; 85730; 93005; 99285

== ENCOUNTER 2020-11-09 10:42 | Emergency (ER) | payer OTHER ==
[2020-11-09 12:08] LABS: Basophils # (A) 0.1 k/uL (0-0.2); Basophils % (A) 1 %; Eosinophils # (A) 0.4 k/uL (0-0.7); Eosinophils % (A) 5 %; HCT 46.6 % (39.0-53.0); HGB 15.3 gm/dL (13.0-17.5); Lymphocytes # (A) 2.5 k/uL (1.0-4.8); Lymphocytes % (A) 31 %; MCH 30.3 pg (25.0-35.0); MCHC 32.8 g/dL (31.0-37.0); MCV 92.4 fL (80.0-100.0); Mean Platelet Volume 7.8; Monocytes # (A) 0.4 k/uL (0-1.0); Monocytes % (A) 5 %; Neutrophils # (A) 4.6 k/uL (1.3-7.7); Neutrophils % (A) 57 %; Platelet Count 243 k/uL (150-450); RBC 5.04 m/uL (4.30-5.90); RDW 13.7 % (11.5-15.5); WBC 8.1 k/uL (3.8-10.6)
[2020-11-09 12:22] LABS: Appearance,Urine Clear (Clear); Bilirubin,Urine Negative (Negative); Blood,Urine Small (Negative); Color,Urine Light Yellow; Glucose,Urine (UA) Negative (Negative); Ketones,Urine Negative (Negative); Leukocyte Esterase,Urine Trace (Negative); Nitrite,Urine Negative (Negative); PH, Urine 6.5 (5.0-8.0); Protein,Urine Negative (Negative); RBC,Urine 2 /hpf (0-5); Specific Gravity,Urine 1.001 (1.001-1.035); Squamous Epithelial Cell,Urine <1 /hpf (0-4); Urobilinogen,Urine <2.0 mg/dL (<2.0); WBC,Urine 4 /hpf (0-5)
[2020-11-09 12:24] LABS: ALT 20 U/L (4-49); AST 21 U/L (17-59); African American GFR (CKD) >90 (>60 ml/min/1.73 sqM); Albumin 4.2 g/dL (3.5-5.0); Alkaline Phosphatase 85 U/L (38-126); Amylase 38 U/L (30-110); Anion Gap 6 mmol/L; Blood Urea Nitrogen 10 mg/dL (9-20); Calcium 9.8 mg/dL (8.4-10.2); Carbon Dioxide 29 mmol/L (22-30); Chloride 104 mmol/L (98-107); Glucose 97 mg/dL (74-99); Lipase 136 U/L (23-300); Non-African American GFR(CKD) >90 (>60 ml/min/1.73 sqM); Potassium 4.3 mmol/L (3.5-5.1); Sodium 139 mmol/L (137-145); Total Bilirubin 0.5 mg/dL (0.2-1.3); Total Protein 6.9 g/dL (6.3-8.2)
--- NOTE | 2020-11-09 12:24 | XR ---
EXAMINATION TYPE: XR KUB DATE OF EXAM: 11/09/2020 COMPARISON: None INDICATION: Abdomen pain TECHNIQUE: Single view abdomen upright view FINDINGS: There is a normal colonic bowel gas pattern. Psoas margins are normal. No organomegaly is present. There is a 0.5 cm mid left renal stone. No free air is under the diaphragm. No differential air-fluid levels are present. IMPRESSION: 1. Left renal stone
[2020-11-09] MEDS ORDERED: PANTOPRAZOLE 40 MG/10 ML VIAL IVP STA (12:55)
--- NOTE | 2020-11-09 13:02 | ED ---
Abdominal Pain HPI - General Chief Complaint: Abdominal Pain Stated Complaint: abd pain Time Seen by Provider: 11/09/20 11:15 Source: patient Mode of arrival: ambulatory Limitations: no limitations - History of Present Illness Initial Comments: 30-year-old male presented for epigastric pain 1 week. Patient states she has had a burning sensation in epigastric region. He is at times. The T-System is mild. Patient states that he thinks he has indigestion. Patient denies a chest pressure jaw pain arm pain and diaphoresis. Patient denies any current pain. Patient states he has had a previous cholecystectomy.Denies fevers, dark stools, bright red stools, vomiting. admits to occasional nausea. pt denies cough congestion or additional complaints upon arrival patient appears well nontoxic in no acute distress EKG ventricular rate 58 bpm, RI interval 158 ms, to administration 98 ms, QT/QTC 394/386 pulse seconds. This is sinus bradycardia no ST elevation or depression appreciated there is artifact in V2 secondary to lead - Related Data Previous Rx's Medication Instructions Recorded Pantoprazole Sodium [Protonix] 40 mg PO DAILY 7 Days #7 tablet. 11/09/20 Allergies Allergy/AdvReac Type Severity Reaction Status Date / Time No Known Allergies Allergy Verified 11/09/20 12:56 Review of Systems ROS Statement: Those systems with pertinent positive or pertinent negative responses have been documented in the HPI. ROS Other: All systems not noted in ROS Statement are negative. Past Medical History Past Medical History: Pneumonia History of Any Multi-Drug Resistant Organisms: None Reported Past Surgical History: Cholecystectomy Past Psychological History: Depression Smoking Status: Former smoker Past Alcohol Use History: Occasional Past Drug Use History: None Reported General Exam - General Exam Comments Initial Comments: General: The patient is awake and alert, in no distress, and does not appear acutely ill. Eye: +3 mm pupils are equal, round and reactive to light, extra-ocular movements are intact. No nystagmus. There is normal conjunctiva bilaterally. No signs of icterus. Ears, nose, mouth and throat: There are moist mucous membranes and no oral lesions. Neck: The neck is supple, there is no tenderness or JVD. Cardiovascular: There is a regular rate and rhythm. No murmur, rub or gallop is appreciated. Respiratory: Lungs are clear to auscultation, respirations are non-labored, breath sounds are equal. No wheezes, stridor, rales, or rhonchi. Gastrointestinal: Soft, non-distended, non-tender abdomen without masses or organomegaly noted. There is no rebound or guarding present. Musculoskeletal: Normal ROM, no tenderness. Strength 5/5. Sensation intact. Radial and DP pulses equal bilaterally 2+. Neurological: A&O x 3. CN II-XII intact grossly, There are no obvious motor or sensory deficits. Coordination appears grossly intact. Speech is normal. Skin: Skin is warm and dry and no rashes or lesions are noted. Psychiatric: Cooperative, appropriate mood & affect, normal judgment. Limitations: no limitations Course Vital Signs 11/09/20 11/09/20 11:05 13:25 Temperature 98.1 F 97.9 F Pulse Rate 64 66 Respiratory 18 16 Rate Blood Pressure 133/77 140/81 O2 Sat by Pulse 98 99 Oximetry Medical Decision Making - Medical Decision Making EKG stable. labs WNL. patient has no current pain to palpation. troponin (-) symptoms x 1 week. KUB left stone. this does not clinically correlate. patient appears wel nontoxic and at this time i feel is stbale for discharge wtih return for worsening symptoms. pcp and GI follow-up, he is prescribed Protonix. Dr Florez agreeable to care plan. - Lab Data Result diagrams: 11/09/20 12:00 11/09/20 12:00 Lab Results 11/09/20 11/09/20 11/09/20 Range/Units 12:00 12:00 12:00 WBC 8.1 (3.8-10.6) k/uL RBC 5.04 (4.30-5.90) m/uL Hgb 15.3 (13.0-17.5) gm/dL Hct 46.6 (39.0-53.0) % MCV 92.4 (80.0-100.0) fL MCH 30.3 (25.0-35.0) pg MCHC 32.8 (31.0-37.0) g/dL RDW 13.7 (11.5-15.5) % Plt Count 243 (150-450) k/uL MPV 7.8 Neutrophils % 57 % Lymphocytes % 31 % Monocytes % 5 % Eosinophils % 5 % Basophils % 1 % Neutrophils # 4.6 (1.3-7.7) k/uL Lymphocytes # 2.5 (1.0-4.8) k/uL Monocytes # 0.4 (0-1.0) k/uL Eosinophils # 0.4 (0-0.7) k/uL Basophils # 0.1 (0-0.2) k/uL Sodium 139 (137-145) mmol/L Potassium 4.3 (3.5-5.1) mmol/L Chloride 104 (98-107) mmol/L Carbon Dioxide 29 (22-30) mmol/L Anion Gap 6 mmol/L BUN 10 (9-20) mg/dL Creatinine 0.88 (0.66-1.25) mg/dL Est GFR (CKD-EPI)AfAm >90 (>60 ml/min/1.73 sqM) Est GFR (CKD-EPI)NonAf >90 (>60 ml/min/1.73 sqM) Glucose 97 (74-99) mg/dL Calcium 9.8 (8.4-10.2) mg/dL Total Bilirubin 0.5 (0.2-1.3) mg/dL AST 21 (17-59) U/L ALT 20 (4-49) U/L Alkaline Phosphatase 85 (38-126) U/L Troponin I (0.000-0.034) ng/mL Total Protein 6.9 (6.3-8.2) g/dL Albumin 4.2 (3.5-5.0) g/dL Amylase 38 (30-110) U/L Lipase 136 (23-300) U/L Urine Color Light Yellow Urine Appearance Clear (Clear) Urine pH 6.5 (5.0-8.0) Ur Specific [place] 1.001 (1.001-1.035) Urine Protein Negative (Negative) Urine Glucose (UA) Negative (Negative) Urine Ketones Negative (Negative) Urine Blood Small H (Negative) Urine Nitrite Negative (Negative) Urine Bilirubin Negative (Negative) Urine Urobilinogen <2.0 (<2.0) mg/dL Ur Leukocyte Esterase Trace H (Negative) Urine RBC 2 (0-5) /hpf Urine WBC 4 (0-5) /hpf Ur Squamous Epith Cells <1 (0-4) /hpf 11/09/20 Range/Units 12:00 WBC (3.8-10.6) k/uL RBC (4.30-5.90) m/uL Hgb (13.0-17.5) gm/dL Hct (39.0-53.0) % MCV (80.0-100.0) fL MCH (25.0-35.0) pg MCHC (31.0-37.0) g/dL RDW (11.5-15.5) % Plt Count (150-450) k/uL MPV Neutrophils % % Lymphocytes % % Monocytes % % Eosinophils % % Basophils % % Neutrophils # (1.3-7.7) k/uL Lymphocytes # (1.0-4.8) k/uL Monocytes # (0-1.0) k/uL Eosinophils # (0-0.7) k/uL Basophils # (0-0.2) k/uL Sodium (137-145) mmol/L Potassium (3.5-5.1) mmol/L Chloride (98-107) mmol/L Carbon Dioxide (22-30) mmol/L Anion Gap mmol/L BUN (9-20) mg/dL Creatinine (0.66-1.25) mg/dL Est GFR (CKD-EPI)AfAm (>60 ml/min/1.73 sqM) Est GFR (CKD-EPI)NonAf (>60 ml/min/1.73 sqM) Glucose (74-99) mg/dL Calcium (8.4-10.2) mg/dL Total Bilirubin (0.2-1.3) mg/dL AST (17-59) U/L ALT (4-49) U/L Alkaline Phosphatase (38-126) U/L Troponin I <0.012 (0.000-0.034) ng/mL Total Protein (6.3-8.2) g/dL Albumin (3.5-5.0) g/dL Amylase (30-110) U/L Lipase (23-300) U/L Urine Color Urine Appearance (Clear) Urine pH (5.0-8.0) Ur Specific [place] (1.001-1.035) Urine Protein (Negative) Urine Glucose (UA) (Negative) Urine Ketones (Negative) Urine Blood (Negative) Urine Nitrite (Negative) Urine Bilirubin (Negative) Urine Urobilinogen (<2.0) mg/dL Ur Leukocyte Esterase (Negative) Urine RBC (0-5) /hpf Urine WBC (0-5) /hpf Ur Squamous Epith Cells (0-4) /hpf Disposition Clinical Impression: Abdominal pain, Indigestion Disposition: HOME SELF-CARE Condition: Good Instructions (If sedation given, give patient instructions): Abdominal Pain (ED) Additional Instructions: Please use medication as discussed. Please follow-up with family doctor in the next 2 days, watch for stool changes/blood or dark stools and follow-up with GI. Please return to emergency room if the symptoms increase or worsen or for any other concerns. Prescriptions: Pantoprazole Sodium [Protonix] 40 mg PO DAILY 7 Days #7 tablet.dr Is patient prescribed a controlled substance at d/c from ED?: No Referrals: None,Stated [Primary Care Provider] - 1-2 days Jack Ortiz MD [STAFF PHYSICIAN] - 1-2 days Time of Disposition: 13:01
[2020-11-09 13:26] VITALS: BP 140/81; PULSE 66; RESP 16; TEMP 97.9
== END 2020-11-09 13:25 | disposition home or self-care (01) ==
LOC: EC 10:42
DX: K30 Functional dyspepsia (principal); Z87.891 Personal history of nicotine dependence; Z90.49 Acquired absence of other specified parts of digestive tract; F32.9 Major depressive disorder, single episode, unspecified
CPT/HCPCS: 36415; 93005; 80053; 82150; 83690; 84484; 85025; 81001; 74018; 99284; 96374; C9113

== ENCOUNTER 2021-01-25 15:46 | Emergency (ER) | payer OTHER ==
[2021-01-25 16:00] VITALS: BP 115/81; PULSE 67; RESP 16; TEMP 98
--- NOTE | 2021-01-25 17:10 | XR ---
Result: Clinical History: Pain. Comparison: None available. Technique: 3 views of the right hand. Findings: No acute fracture or dislocation is seen. The visualized osseous structures are in anatomic alignmen t. The joint spaces are preserved. There is no definite radiopaque foreign body seen. Impression: No acute osseous abnormality.
--- NOTE | 2021-01-25 17:20 | ED ---
Upper Extremity HPI - General Chief Complaint: Extremity Injury, Upper Stated Complaint: Rt Wrist Injury Time Seen by Provider: 01/25/21 16:44 Source: patient, RN notes reviewed Mode of arrival: ambulatory Limitations: no limitations - History of Present Illness Initial Comments: Patient is a 30-year-old male that presents to the emergency department co mplaining of right hand pain. He noted that on Saturday he punched a dumpster. He notes that he wanted to come earlier by his right side given a couple days to see if he gets better. Patient notes he does have full range of motion and sensation in his right hand and fingers. She wanted to come in to get evaluated for any potential breaks. He was in no apparent distress or pain while sitting up in bed during exam and interview. He denied any chest pain shortness breath headache nausea vomiting diarrhea constipation fever fatigue chills. - Related Data Home Medications Medication Instructions Recorded Confirmed No Known Home Medications 01/25/21 01/25/21 Allergies Allergy/AdvReac Type Severity Reaction Status Date / Time No Known Allergies Allergy Verified 01/25/21 17:39 Review of Systems ROS Statement: Those systems with pertinent positive or pertinent negative responses have been documented in the HPI. ROS Other: All systems not noted in ROS Statement are negative. Past Medical History Past Medical History: Pneumonia History of Any Multi-Drug Resistant Organisms: None Reported Past Surgical History: Cholecystectomy Past Psychological History: Depression Smoking Status: Former smoker Past Alcohol Use History: Occasional Past Drug Use History: None Reported General Exam Limitations: no limitations General appearance: alert, in no apparent distress Head exam: Present: atraumatic, normocephalic, normal inspection Eye exam: Present: normal appearance, PERRL, EOMI. Absent: scleral icterus, conjunctival injection, periorbital swelling Neck exam: Present: normal inspection Respiratory exam: Present: normal lung sounds bilaterally. Absent: respiratory distress, wheezes, rales, rhonchi, stridor Cardiovascular Exam: Present: regular rate, normal rhythm, normal heart sounds. Absent: systolic murmur, diastolic murmur, rubs, gallop, clicks Right Hand Wrist exam: Present: full ROM, tenderness (Over the metacarpophalangeal joint of the third digit), swelling, abrasion (Over the metacarpophalangeal joint of the third digit). Absent: normal inspection, laceration, ecchymosis, deformity Neurological exam: Present: alert, oriented X3 Psychiatric exam: Present: normal affect, normal mood Skin exam: Present: warm, dry, intact, normal color. Absent: rash Course Vital Signs 01/25/21 15:58 Temperature 98 F Pulse Rate 67 Respiratory 16 Rate Blood Pressure 115/81 O2 Sat by Pulse 96 Oximetry Medical Decision Making - Medical Decision Making Patient is a 30-year-old male complaining of right hand pain after punching a dumpster on Saturday. Right hand x-ray ordered. X-ray negative for any acute osseous abnormality. Case discussed with Dr. Hull, patient can discharge home with follow-up to primary care. Disposition Clinical Impression: Hand contusion Disposition: HOME SELF-CARE Condition: Stable Instructions (If sedation given, give patient instructions): Hand Sprain (ED) Additional Instructions: Please return to the Emergency Department if symptoms worsen or any other concerns. Follow-up with orthopedist as needed. Use as tolerated, avoid any strenuous activity or exercise or lifting. Take Tylenol and/or Motrin as needed for pain control. Is patient prescribed a controlled substance at d/c from ED?: No Referrals: None,Stated [Primary Care Provider] - 1-2 days John Guillermo DO [Doctor of Osteopathic Medicine] - 1-2 days Time of Disposition: 17:40
== END 2021-01-25 18:02 | disposition home or self-care (01) ==
LOC: EC 15:46
DX: S60.221A Contusion of right hand, initial encounter (principal); Z87.891 Personal history of nicotine dependence; W22.8XXA Striking against or struck by other objects, initial encounter
CPT/HCPCS: 99283